=== PATIENT | male | born 1985 | race Two or more races ===

== ENCOUNTER 2018-07-05 00:28 | Emergency (ER) | payer SELFPAY ==
[2018-07-05] MEDS ORDERED: Sodium Chloride 0.9% 1,000 ML IV STA (00:53)
[2018-07-05 01:39] LABS: BASO % 0.2 % (0.0-2.0); EOS % 0.1 % (0.0-4.0); HEMOGLOBIN 15.3 g/dL (12.0-18.0); LYMPH # 0.7 K/uL (1.0-4.3); LYMPH % 6.8 % (20.0-40.0); MEAN CELL VOLUME 90.5 fl (80.0-94.0); MEAN CORPUSCULAR HGB CONC 34.2 g/dL (33.0-37.0); MEAN PLATELET VOLUME 9.7 fl (7.2-11.7); MONO # 0.5 K/uL (0.0-0.8); NEUT # 8.9 K/uL (1.8-7.0); NEUT % 87.9 % (50.0-75.0); NRBC % 0.2 % (0.0-0.0); PLATELET COUNT 128 K/uL (130-400); RBC 4.94 Mil/uL (4.40-5.90); RED CELL DISTRIBUTION WIDTH 13.2 % (11.5-14.5); WHITE BLOOD COUNT 10.2 K/uL (4.8-10.8)
[2018-07-05 01:49] LABS: ALB/GLOB RATIO 1.8 (1.0-2.1); ALBUMIN 4.3 g/dL (3.5-5.0); ALT/SGPT 40 U/L (21-72); AST/SGOT 41 U/L (17-59); BLOOD UREA NITROGEN 24 mg/dl (9-20); CALCIUM 8.8 mg/dL (8.4-10.2); GFR NON-AFRICAN AMERICAN > 60
--- NOTE | 2018-07-05 01:57 | ED PDOC ---
HPI: Psych/Substance Abuse Time Seen by Provider: 07/05/18 00:37 Chief Complaint (Nursing): Medical Clearance Chief Complaint (Provider): Alcohol Intoxication, Agitation ED Caveat: Intoxicated History Per: Other ([place] [employer]) History/Exam Limitations: intoxication Onset/Duration Of Symptoms: Mins (prior to arrival) Current Symptoms Are (Timing): Still Present Additional Complaint(s): 33 year old male presents to the ED under police custody for alcohol intoxication and extreme agitated behavior. He presents for medical and psychiatric clearance. At this time, pt is verbally abusive to the provider and staff, vomiting multiple times in triage and in room. Due to pt being a poor historian, ROS and PMHX is limited. PMD: unobtainable Past Medical History Reviewed: Unable To Obtain Vital Signs: Last Vital Signs Temp 97.5 F L 07/05/18 00:33 Pulse 95 H 07/05/18 00:33 Resp 18 07/05/18 00:33 BP 120/71 07/05/18 00:33 Pulse Ox 100 07/05/18 00:33 - Family History Family History: States: Unknown Family Hx - Allergies Allergies/Adverse Reactions: Allergies Allergy/AdvReac Type Severity Reaction Status Date / Time Unobtainable Allergy Verified 07/05/18 00:31 Review of Systems Review Of Systems: ROS cannot be obtained secondary to pt's inabilty to answer questions. Physical Exam - Reviewed Nursing Documentation Reviewed: Yes Vital Signs Reviewed: Yes - Physical Exam Appears: Positive for: No Acute Distress (but agitated, yelling repeatedly) Head Exam: Positive for: NORMOCEPHALIC. Negative for: ATRAUMATIC (facial abrasions) Skin: Positive for: Normal Color, Warm, Dry Eye Exam: Positive for: Normal appearance ENT: Positive for: Normal ENT Inspection Cardiovascular/Chest: Positive for: Regular Rate, Rhythm Respiratory: Positive for: Normal Breath Sounds. Negative for: Accessory Muscle Use, Respiratory Distress Gastrointestinal/Abdominal: Positive for: Normal Exam, Soft. Negative for: Tenderness Back: Positive for: Normal Inspection Extremity: Positive for: Normal ROM Neurologic/Psych: Positive for: Alert, Other (uncooperative, slurred speech) - Laboratory Results Result Diagrams: 07/05/18 01:32 07/05/18 01:32 - ECG O2 Sat by Pulse Oximetry: 100 (RA) Pulse Ox Interpretation: Normal Medical Decision Making Medical Decision Making: Time: 41 Initial Impression: 33 year old male with acute agitation and alcohol intoxication as well as evidence of head injury Initial Plan: --CT head w/o contrast --Alcohol serum --CMP --CBC with differential --Ativan 2 mg IM --Haldol 5 mg IM --Normal saline IV --Zofran Inj 4 mg IV --1:1 --Restraints for safety --Accucheck --Urinalysis 335 CT Head w/o contrast FINDINGS: Brain: Unremarkable. No hemorrhage. No significant white matter disease. No edema. Ventricles: Unremarkable. No ventriculomegaly. Bones/joints: Unremarkable. No acute fracture. Soft tissues: Edema in the soft tissues of the left face. Sinuses: Unremarkable as visualized. No acute sinusitis. Mastoid air cells: Unremarkable as visualized. No mastoid effusion. IMPRESSION: Edema in the soft tissues of the left face. Labs reviewed alejandro no clinically significant abnormalities with exception of elevated BAL At 5AM patient evaluated by crisis and is stable for discharge to [facility] Alcohol induced mood disorder Scribe Attestation: Documented by Nicolette Soto, acting as a scribe for Regulo Zhu MD. Provider Scribe Attestation: All medical record entries made by the Scribe were at my direction and personally dictated by me. I have reviewed the chart and agree that the record accurately reflects my personal performance of the history, physical exam, medical decision making, and the department course for this patient. I have also personally directed, reviewed, and agree with the discharge instructions and disposition. Disposition - Clinical Impression Clinical Impression: Alcohol-induced mood disorder - Disposition Disposition: Discharged/Transfer to Law Enforcement Disposition Time: 05:00 Condition: STABLE Additional Instructions: Patient is medically and psychiatrically stable for incarceration Instructions: Alcohol Abuse and Alcoholism (DC) Forms: [facility] (Greek)
[2018-07-05 02:57] LABS: BANDS 1 % (0-2); BASOPHIL 1 % (0-2); LYMPHOCYTE 6 % (20-50); MONOCYTE 1 % (0-10); MYELOCYTE 1 % (0-0); NEUTROPHIL 89 % (42-75); REACTIVE LYMPHOCYTES 1 % (0-0); TOTAL CELLS COUNTED 100
[2018-07-05 02:58] LABS: PLATELET ESTIMATE SLIGHTLY DECREASED (NORMAL)
[2018-07-05 02:59] LABS: LARGE PLATELETS PRESENT
[2018-07-05 05:29] VITALS: BP 120/66; PULSE 82; RESP 16; TEMP 98.1
[2018-07-05 05:38] VITALS: O2SAT 100
--- NOTE | 2018-07-05 07:52 | CT ---
Date of service: 07/05/2018 PROCEDURE: CT HEAD WITHOUT CONTRAST. HISTORY: head injury COMPARISON: None available. TECHNIQUE: Axial computed tomography images were obtained through the head/brain without intravenous contrast. Radiation dose: Total exam DLP = mGy-cm. This CT exam was performed using one or more of the following dose reduction techniques: Automated exposure control, adjustment of the mA and/or kV according to patient size, and/or use of iterative reconstruction technique. FINDINGS: HEMORRHAGE: No intracranial hemorrhage. BRAIN: No mass effect or edema. No atrophy or chronic microvascular ischemic changes. VENTRICLES: Unremarkable. No hydrocephalus. CALVARIUM: Unremarkable. PARANASAL SINUSES: Unremarkable as visualized. No significant inflammatory changes. MASTOID AIR CELLS: Unremarkable as visualized. No inflammatory changes. OTHER FINDINGS: None. IMPRESSION: Normal CT of the Head.
== END 2018-07-05 05:29 ==
LOC: H.ER 00:28
DX: F10.24 Alcohol dependence with alcohol-induced mood disorder (principal); R11.10 Vomiting, unspecified; S09.90XA Unspecified injury of head, initial encounter; S00.81XA Abrasion of other part of head, initial encounter; Y92.89 Other specified places as the place of occurrence of the external cause
CPT/HCPCS: 70450; 80053; 85025; 96360; 96372; 99285; G0480; J1630; J2060; J2405; J7030